=== PATIENT | male | born 1935 | race Caucasian/White ===

== ENCOUNTER 2018-10-22 10:37 | Inpatient (IN) ==
[2018-10-22] MEDS ORDERED: Azithromycin 500 MG in D5% in Water 250 ML IVPB ONE (11:08)
[2018-10-22] MEDS ORDERED: methylPREDNISolone 125 MG/2 ML VIAL IVP ONE (11:08)
[2018-10-22] MEDS ORDERED: Ipratropium/Albuterol Neb 3 ML IH ONE (11:08)
[2018-10-22] MEDS ORDERED: cefTRIAXone 1,000 MG in Water for inj. (sterile) 20 ML 10 ML IVP ONE (11:08)
[2018-10-22] MEDS ORDERED: Albuterol 2.5 MG/3 ML NEBULIZER IH ONE (11:08)
--- NOTE | 2018-10-22 11:14 | Emergency Department Note ---
Disposition Clinical Impression: Acute exacerbation of chronic obstructive airways disease Disposition: Admitted As Inpatient Condition: Fair Time of Disposition: 12:00 ( will admit) SOB HPI - General Chief Complaint: ED Shortness of Breath/Dyspnea Stated Complaint: SOB Time Seen by Provider: 10/22/18 11:10 Source: patient Mode of arrival: EMS Limitations: no limitations Nursing Notes Reviewed: Yes Vital Signs Reviewed: Yes - History of Present Illness 83-year-old male, who presented to the emergency department via EMS with complaints of shortness of breath, coughing congestion. Patient with history of COPD, who all maneuvers oxygen at bedtime, oxygen saturation on arrival was 88% on room air. Patient is being followed by mercury cracking tester at [facility], who has ordered some labs EKG on the patient outpatient. Patient being evaluated for congestive heart failure, and chronic A. fib. He is here with his neighbor, who states that he has been short of breath for at least a couple of months but worse over the past week. Patient also has complaints of constipation. Patient with AICD, denies his defibrillator going off. Pt Subjective Complaint: shortness of breath Onset (ago): week(s) (1 week) Context: occurred during exertion Severity: moderate Consistency/Duration: intermittent Improves with: oxygen Worsens with: lying flat Known history of: congestive heart failure Associated symptoms: Reports: sputum production, orthopnea Treatment prior to arrival: oxygen Cough present: Yes Cough Description: Voluntary Cough Frequency: Intermittent Sputum production: Yes Sputum Amount: Small Sputum Color: White - Related Data Home oxygen amount: none Home Medications Medication Instructions Recorded Confirmed Albuterol Sulfate [Proventil Hfa] 6.7 gm IH QID 02/10/18 10/22/18 Aspirin [Lo-Dose Aspirin EC] 81 mg PO DAILY 02/10/18 10/22/18 Atorvastatin [Lipitor] 10 mg PO HS 02/10/18 10/22/18 Cyclosporine [Restasis] 1 each OP BID 02/10/18 10/22/18 Doxycycline 100 mg PO QMWF 02/10/18 10/22/18 Ergocalciferol (VITAMIN D2) 400 unit PO DAILY 02/10/18 10/22/18 [Vitamin D] Ferrous Sulfate, Dried [Iron] 65 mg PO DAILY 02/10/18 10/22/18 Fluticasone/Salmeterol [Advair 1 each IH BID 02/10/18 10/22/18 250-50 Diskus] Furosemide [Lasix] 40 mg PO DAILY 02/10/18 10/22/18 Ipratropium Neb [Atrovent Neb] 0.5 mg IH Q6HR PRN 02/10/18 10/22/18 Magnesium 250 mg PO DAILY 02/10/18 10/22/18 Primidone [Mysoline] 50 mg PO BID 02/10/18 10/22/18 Roflumilast [Daliresp] 500 mcg PO DAILY 02/10/18 10/22/18 Spironolactone [Aldactone] 25 mg PO DAILY 02/10/18 10/22/18 Tiotropium [Spiriva] 18 mcg IH 0700 02/10/18 10/22/18 Warfarin [Coumadin] 4 mg PO 1800 02/10/18 10/22/18 predniSONE [Prednisone] 2.5 mg PO QMWF 02/10/18 10/22/18 Carvedilol [Coreg] 6.25 mg PO BIDWM 10/22/18 10/22/18 Cyclosporine [Restasis] 1 each OP BID 10/22/18 10/22/18 Allergies Allergy/AdvReac Type Severity Reaction Status Date / Time phenytoin [From Dilantin] Allergy See Verified 02/10/18 10:41 Comments Constitutional: Denies: fever, chills, weakness, weight change Eyes: Denies: eye pain, eye discharge, vision change ENT ED: Denies: ear pain, throat pain, dental pain, hearing loss, epistaxis, congestion, dysphagia Cardiovascular: Denies: chest pain, palpitations, dyspnea on exertion, edema, syncope Respiratory: Reports: cough, dyspnea, wheezes. Denies: hemoptysis, stridor Gastrointestinal: Denies: abdominal pain, nausea, vomiting, diarrhea, constipation, hematemesis, melena, hematochezia Genitourinary: Denies: urgency, dysuria, frequency, hematuria Musculoskeletal: Denies: back pain, neck pain, arthralgia, myalgia Integumentary: Denies: rash, abrasion, lesions Neurological: Denies: headache, weakness, numbness, paresthesias, confusion, abnormal gait, vertigo Psychiatric: Denies: anxiety, depression, suicidal thoughts, homicidal thoughts, auditory hallucinations, visual hallucinations Endocrine: Denies: fatigue Hematological/Lymphatic: Denies: easy bleeding, easy bruising Allergic/Immunologic: Denies: facial swelling, urticaria Past Medical History - Past Medical History Medical history: Reports: COPD, myocardial infarction, pulmonary embolus Psychiatric history: Reports: no psych history - Social History Smoking Status: Former smoker Alcohol use: Reports: occasionally Drug use: Reports: none Physical Exam - General Limitations: no limitations General appearance: alert, in no apparent distress - Head Head exam: atraumatic, normocephalic, normal inspection - Eye Eye exam: Present: normal appearance, PERRL, EOMI - Expanded Eye Exam Pupils: Left: reactive - ENT ENT exam: normal exam, normal oropharynx, mucous membranes moist - Expanded ENT Exam External ear exam: Present: normal external inspection Mouth exam: Present: normal external inspection Teeth exam: Present: normal inspection Throat exam: Present: normal inspection - Neck Neck exam: Present: normal inspection, full ROM, trachea midline - Chest Chest inspection: Present: normal inspection, symmetric chest wall rise - Respiratory Respiratory exam: Present: wheezes - Cardiovascular Cardiovascular exam: Present: irregular rhythm - Abdominal Exam Abdominal exam: Present: soft, Non-Tender. Absent: tenderness, distention, guarding, rebound, rigidity - Extremities Exam Extremities exam: Present: normal inspection, full ROM. Absent: tenderness, pedal edema - Expanded Upper Extremity Exam Shoulder exam: Present: normal inspection, full ROM Arm exam: Present: normal inspection, full ROM Elbow exam: Present: normal inspection, full ROM Forearm/Wrist exam: Present: normal inspection, full ROM Hand exam: Present: normal inspection, full ROM Vascular exam: Normal: capillary refill, radial pulse - Expanded Lower Extremity Exam Hip/Pelvis exam: Present: normal inspection, full ROM Upper leg exam: Present: normal inspection, full ROM Knee exam: Present: normal inspection, full ROM Lower leg exam: Present: normal inspection, full ROM Ankle exam: Present: normal inspection, full ROM Foot/toe exam: Present: normal inspection, full ROM Neurovascular/Tendon exam: Absent: motor deficit, sensory deficit, tendon deficit - Back Exam Back exam: Present: normal inspection, full ROM. Absent: tenderness - Neurological Exam Neurological exam: Present: alert, oriented X3 - Expanded Neurological Exam Patient oriented to: Present: person, place, time Coma Scale Eye Opening: Spontaneous Coma Scale Motor Response: Obeys Commands Coma Scale Verbal Response: Oriented Coma Scale Total: 15 - Psychiatric Psychiatric exam: Present: normal affect, normal mood - Skin Skin exam: Present: warm, dry, intact, normal color Course Vital Signs Temperature 97.7 F 10/22/18 10:39 Pulse Rate 64 10/22/18 10:39 Respiratory Rate 20 10/22/18 10:39 Blood Pressure 123/68 10/22/18 10:39 O2 Sat by Pulse Oximetry 91 10/22/18 10:39 Temperature 97.7 F 10/22/18 10:39 Pulse Rate 63 10/22/18 12:09 Respiratory Rate 18 10/22/18 12:09 Blood Pressure 121/62 10/22/18 12:09 O2 Sat by Pulse Oximetry 96 10/22/18 12:09 Oxygen Delivery Oxygen Delivery Nasal Cannula Shortness of Breath/Dyspnea - Differential Diagnosis Likely: acute exacerbation of chronic obstructive airways disease, congestive heart failure, pneumonia, asthma with exacerbation - Medical Records Medical records reviewed: Yes I reviewed the patient's medical records. - Lab Data Lab results reviewed: Yes I reviewed the patient's lab results. Result diagrams: 10/22/18 11:28 10/22/18 11:28 Lab Results 10/22/18 10/22/18 10/22/18 Range/Units 11:28 11:28 11:28 WBC 9.3 (4.3-11.1) K/mcL RBC 3.76 L (4.19-5.50) M/mcL Hgb 12.1 L (12.9-16.9) g/dL Hct 36.6 L (37.5-50.1) % MCV 97.3 (83.0-100.0) fL MCH 32.2 (28.0-33.3) pg MCHC 33.1 (31.6-35.5) g/dL RDW 14.5 (11.5-14.5) % Plt Count 284 (140-400) K/mcL MPV 9.7 (9.4-12.4) fL Immature Gran % 0.3 (0-4) % Seg Neutrophils % 81.1 % Lymphocytes % 9.6 % Monocytes % 7.3 % Eosinophils % 1.2 % Basophils % 0.5 % Neutrophils # 7.5 (1.6-8.9) K/mcL Lymphocytes # 0.9 (0.6-4.6) K/mcL Monocytes # 0.7 (0.0-1.3) K/mcL Eosinophils # 0.1 (0.0-0.6) K/mcL Basophils # 0.1 (0.0-0.2) K/mcL PT 36.9 H (9.4-12.1) Seconds INR 3.3 APTT 38.1 H (26.0-36.0) Seconds Sodium 138 (136-145) mEq/L Potassium 4.9 (3.5-5.1) mEq/L Chloride 104 (98-107) mEq/L Carbon Dioxide 26 (23-29) mEq/L BUN 31 H (8-23) mg/dL Creatinine 1.12 (0.70-1.30) mg/dL Est GFR ( Amer) > 60 (> 60) Est GFR (Non-Af Amer) > 60 (> 60) BUN/Creatinine Ratio 28 H (6-26) Glucose 117 H (70-105) mg/dL Calculated Osmolality 294 (280-300) Lactic Acid (0.5-2.2) mmol/L Calcium 9.7 (8.6-10.3) mg/dL Troponin I < 0.03 (< 0.04) ng/mL B-Natriuretic Peptide (Less than 100) pg/mL 10/22/18 10/22/18 Range/Units 11:28 11:28 WBC (4.3-11.1) K/mcL RBC (4.19-5.50) M/mcL Hgb (12.9-16.9) g/dL Hct (37.5-50.1) % MCV (83.0-100.0) fL MCH (28.0-33.3) pg MCHC (31.6-35.5) g/dL RDW (11.5-14.5) % Plt Count (140-400) K/mcL MPV (9.4-12.4) fL Immature Gran % (0-4) % Seg Neutrophils % % Lymphocytes % % Monocytes % % Eosinophils % % Basophils % % Neutrophils # (1.6-8.9) K/mcL Lymphocytes # (0.6-4.6) K/mcL Monocytes # (0.0-1.3) K/mcL Eosinophils # (0.0-0.6) K/mcL Basophils # (0.0-0.2) K/mcL PT (9.4-12.1) Seconds INR APTT (26.0-36.0) Seconds Sodium (136-145) mEq/L Potassium (3.5-5.1) mEq/L Chloride (98-107) mEq/L Carbon Dioxide (23-29) mEq/L BUN (8-23) mg/dL Creatinine (0.70-1.30) mg/dL Est GFR ( Amer) (> 60) Est GFR (Non-Af Amer) (> 60) BUN/Creatinine Ratio (6-26) Glucose (70-105) mg/dL Calculated Osmolality (280-300) Lactic Acid 1.1 (0.5-2.2) mmol/L Calcium (8.6-10.3) mg/dL Troponin I (< 0.04) ng/mL B-Natriuretic Peptide 137 H (Less than 100) pg/mL - Radiology Data Radiology results reviewed: Yes I reviewed the patient's radiology results. - EKG Data EKG attestation: Yes I reviewed and interpreted this EKG. EKG results narrative: EKG shows a electronically paced rhythm, rate of 53. Rate: Reports: normal Rhythm: Reports: NSR
[2018-10-22 11:36] LABS: Basophils # 0.1 K/mcL (0.0-0.2); Basophils % 0.5 %; Eosinophils # 0.1 K/mcL (0.0-0.6); Eosinophils % 1.2 %; Hematocrit 36.6 % (37.5-50.1); Hemoglobin 12.1 g/dL (12.9-16.9); Immature Granulocytes % 0.3 % (0-4); Lymphocytes # 0.9 K/mcL (0.6-4.6); Lymphocytes % 9.6 %; Mean Corpuscular HGB Conc 33.1 g/dL (31.6-35.5); Mean Corpuscular Hemoglobin 32.2 pg (28.0-33.3); Mean Corpuscular Volume 97.3 fL (83.0-100.0); Mean Platelet Volume 9.7 fL (9.4-12.4); Monocytes # 0.7 K/mcL (0.0-1.3); Monocytes % 7.3 %; Neutrophils # 7.5 K/mcL (1.6-8.9); Platelet Count 284 K/mcL (140-400); Red Blood Count 3.76 M/mcL (4.19-5.50); Red Cell Distribution Width 14.5 % (11.5-14.5); Segmented Neutrophils % 81.1 %
[2018-10-22 11:45] LABS: INR 3.3; Prothrombin Time 36.9 Seconds (9.4-12.1)
[2018-10-22 11:47] LABS: Activated Partial Thrombo Time 38.1 Seconds (26.0-36.0)
[2018-10-22 11:55] LABS: BUN/Creatinine Ratio 28 (6-26); Blood Urea Nitrogen 31 mg/dL (8-23); Calcium 9.7 mg/dL (8.6-10.3); Carbon Dioxide 26 mEq/L (23-29); Chloride 104 mEq/L (98-107); Glucose 117 mg/dL (70-105); Osmolality,Calculated 294 (280-300); Potassium 4.9 mEq/L (3.5-5.1); Sodium 138 mEq/L (136-145); eGFR For Non-African Americans > 60 (> 60)
[2018-10-22 11:56] LABS: Troponin I < 0.03 ng/mL (< 0.04)
[2018-10-22] MEDS ORDERED: Ipratropium/Albuterol Neb 3 ML IH SCH ×2 (13:00→17:00)
[2018-10-22] MEDS ORDERED: Ipratropium Neb 0.5 MG NEBULIZER IH PRN (13:27)
[2018-10-22] MEDS: MethylPREDNISolone 40 MG/ML VIAL IVP SCH ×2 (15:13→20:21)
[2018-10-22] MEDS: Artificial Tears SOLN 15 ML BOTTLE BOTH EYES PRN (15:13)
[2018-10-22] MEDS ORDERED: *HR* Warfarin 2 MG TABLET PO SCH (18:00)
[2018-10-22] MEDS: Primidone 50 MG TABLET PO SCH (20:21)
[2018-10-22] MEDS: RESTASIS OPH OP SCH (20:21)
[2018-10-22] MEDS: *HR* Warfarin 3 MG TABLET PO SCH (21:32)
[2018-10-22] MEDS: Budesonide/Formoterol 80/4.5 MDI IH SCH (22:28)
[2018-10-23] MEDS: Spironolactone 25 MG TABLET PO SCH (08:02)
[2018-10-23] MEDS: Primidone 50 MG TABLET PO SCH ×2 (08:02→20:58)
[2018-10-23] MEDS: Magnesium Oxide 400 MG TABLET PO SCH (08:03)
[2018-10-23] MEDS: Furosemide 40 MG TABLET PO SCH (08:03)
[2018-10-23] MEDS: Aspirin Enteric Coated 81 MG Tablet PO SCH (08:03)
[2018-10-23] MEDS: Cholecalciferol (D-3) 1,000 UNIT TABLET PO SCH (08:03)
[2018-10-23] MEDS: RESTASIS OPH OP SCH ×2 (08:04→20:58)
[2018-10-23] MEDS: DALIRESP 500MCG PO SCH (08:04)
[2018-10-23] MEDS: MethylPREDNISolone 40 MG/ML VIAL IVP SCH ×3 (08:04→20:58)
[2018-10-23] MEDS: Tiotropium 18 MCG inhalation IH SCH (09:46)
[2018-10-23] MEDS: Budesonide/Formoterol 80/4.5 MDI IH SCH ×2 (09:47→22:14)
[2018-10-23] MEDS: Artificial Tears SOLN 15 ML BOTTLE BOTH EYES PRN (10:02)
--- NOTE | 2018-10-23 12:33 | Electrocardiograph Report ---
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
--- NOTE | 2018-10-23 14:43 | Internal Med History&Physical ---
Date of Encounter: 10/23/18 Time of Encounter: 08:45 Assessment and Plan (1) Acute exacerbation of chronic obstructive airways disease Current visit: Yes Status: Acute WBC differential shows left shift although no WBC elevation. He will be started on IV Rocephin and Zithromax with lactobacillus. CT of chest will be done to further evaluate. (2) Weight loss Current visit: Yes Status: Acute He will have chest, abdomen, and pelvis CT scan. TSH will be ordered. (3) Anemia Current visit: Yes Status: Acute Anemia testing will be ordered. Qualifiers: Anemia type: unspecified type Qualified Code(s): D64.9 - Anemia, unspecified (4) Atrial fibrillation Current visit: Yes Status: Chronic Continue Coumadin Qualifiers: Atrial fibrillation type: chronic Qualified Code(s): I48.2 - Chronic atrial fibrillation Internal Medicine - H&P: HPI Chief complaint: Dyspnea Admitted From: Emergency Dept Plans for Post Hospital Care: Home History of present illness: Mr. Parrish is a 83 year old male who came to emergency room stating he had worsening dyspnea with diarrhea for the past 2 days. He reports a cough produ ctive of clear sputum. There is been no hemoptysis. He denies significant pain. He was evaluated in emergency room and was felt to have exacerbation of COPD. He was admitted to [facility] floor for ongoing care needs. Respiratory history is significant for having smoked from approximately age 10-5 0 up to 2 packs per day. He wears oxygen at home due to COPD with hypoxemia. He follows with a test facility engineer at [facility]. Past Med Surg Social Fam HX - Past Medical History Medical history: COPD, myocardial infarction, pulmonary embolus Additional medical history: bloodclots Psychiatric history: no psych history - Past Surgical History Additional surgical history: stent carotid artery. chiqui filter rt leg. cardiac stents - Social History Smoking Status: Former smoker Alcohol use: occasionally Drug use: none Internal Medicine - H&P: Meds Albuterol Sulfate [Proventil Hfa] 6.7 gm IH QID 02/10/18 [History] Aspirin [Lo-Dose Aspirin EC] 81 mg PO DAILY 02/10/18 [History] Atorvastatin [Lipitor] 10 mg PO HS 02/10/18 [History] Cyclosporine [Restasis] 1 each OP BID 02/10/18 [History] Doxycycline 100 mg PO QMWF 02/10/18 [History] Ergocalciferol (VITAMIN D2) [Vitamin D] 400 unit PO DAILY 02/10/18 [History] Ferrous Sulfate, Dried [Iron] 65 mg PO DAILY 02/10/18 [History] Fluticasone/Salmeterol [Advair 250-50 Diskus] 1 each IH BID 02/10/18 [History] Furosemide [Lasix] 40 mg PO DAILY 02/10/18 [History] Ipratropium Neb [Atrovent Neb] 0.5 mg IH Q6HR PRN 02/10/18 [History] Magnesium 250 mg PO DAILY 02/10/18 [History] Primidone [Mysoline] 50 mg PO BID 02/10/18 [History] Roflumilast [Daliresp] 500 mcg PO DAILY 02/10/18 [History] Spironolactone [Aldactone] 25 mg PO DAILY 02/10/18 [History] Tiotropium [Spiriva] 18 mcg IH 0700 02/10/18 [History] Warfarin [Coumadin] 4 mg PO 1800 02/10/18 [History] predniSONE [Prednisone] 2.5 mg PO QMWF 02/10/18 [History] Carvedilol [Coreg] 6.25 mg PO BIDWM 10/22/18 [History] Cyclosporine [Restasis] 1 each OP BID 10/22/18 [History] Allergy/AdvReac Type Severity Reaction Status Date / Time phenytoin [From Dilantin] Allergy See Verified 02/10/18 10:41 Comments All Systems PM: A 10-system review of systems was performed and is negative for pertinent findings except as documented above in the HPI. Review of systems: Gen.: He states his weight has decreased approximately 40 pounds in the past 2 years unintentionally. Cardiovascular: He denies hypertension. He has known ASHD and reports MO several years ago with 2 stents placed. He has chronic atrial fibrillation. He thinks he has had a pulmonary embolism but does not remember details. Echocardiogram 09/13/2017 showed LVEF of 35-40%. The E/A ratio was 0.66. The interventricular septum, posterior wall thickness measurements, and atria size were not recorded. He states he has had worsening dyspnea on exertion for several months to years. He had AICD placed in the past but does not know specific indication for this. Respiratory: As per history of present illness GI: He denies disorders of his liver gallbladder or exocrine pancreas : He denies hematuria dysuria or kidney stones Neurologic: He denies large distribution strokes or seizures. Endocrine: He denies diabetes thyroid disease or hyperlipidemia Hematology/oncology: He was unaware he had anemia on labs in emergency room. He denies known internal malignancies or other blood disorders. Psychiatric: He has feelings of depression. He denies other mental health diagnosis. [place] skeletal: He denies significant arthritis gout or other bone joint or muscle disorders. - Constitutional Vitals: Temp Pulse Resp BP Pulse Ox 97.7 F 68 20 132/75 95 10/23/18 12:06 10/23/18 12:06 10/23/18 12:06 10/23/18 12:06 10/23/18 12:06 Exam: Gen.: He is a well-developed well-nourished male who appears slightly dyspneic while talking HEENT: Head is atraumatic and normocephalic. Eyes: EOMI. There is no scleral icterus. Mouth: Mucosa is moist. Neck: Supple and nontender. There is no thyromegaly or adenopathy noted. Heart: Regular without murmurs gallops or ectopics Lungs: No wheezes or crackles are heard. Abdomen: Soft and nontender. No masses or guarding are noted. Extremities: There is no cyanosis edema or clubbing noted. Dorsalis pedis and posttibial pulses are 0-trace palpable bilaterally. Neurologic: Mental status: He is talkative and a fair to good historian. He does not remember some details of his history. Cranial nerves: Smile is symmetric. Forehead wrinkles bilaterally. Tongue protrudes midline. EOMI. Motor: There is no pronator drift. Cerebellar: Finger to nose is intact bilaterally. Skin: Warm and dry Internal Med - H&P Results - Labs CBC & Chem 7: 10/22/18 11:28 10/22/18 11:28 - Impressions ITS Impressions Chest X-Ray 10/22/18 11:08 IMPRESSION: No evidence for acute cardiopulmonary process. D/ / Yobani Echeverria MD / Yobani Echeverria MD Interpreting Provider: Yobani Echeverria MD
[2018-10-23] MEDS: Preparation H Ointment 30 GM TUBE TP SCH ×2 (15:01→22:17)
[2018-10-23] MEDS: *HR* Warfarin 3 MG TABLET PO SCH (16:52)
[2018-10-23] MEDS: cefTRIAXone 1,000 MG in Water for inj. (sterile) 20 ML 10 ML IVP SCH (17:34)
[2018-10-23] MEDS: Azithromycin 500 MG in D5% in Water 250 ML IVPB SCH (17:41)
[2018-10-23] MEDS: Lactobacillus 1 EACH CAP.SPRINK PO SCH (20:58)
[2018-10-24 06:11] LABS: Basophils % 0.1 %; Eosinophils % 0.2 %; Hematocrit 35.6 % (37.5-50.1); Hemoglobin 11.6 g/dL (12.9-16.9); Immature Granulocytes % 0.4 % (0-4); Lymphocytes # 0.8 K/mcL (0.6-4.6); Lymphocytes % 6.9 %; Mean Corpuscular HGB Conc 32.6 g/dL (31.6-35.5); Mean Corpuscular Hemoglobin 32.2 pg (28.0-33.3); Mean Corpuscular Volume 98.9 fL (83.0-100.0); Mean Platelet Volume 10.2 fL (9.4-12.4); Monocytes # 0.6 K/mcL (0.0-1.3); Monocytes % 4.9 %; Platelet Count 282 K/mcL (140-400); Red Cell Distribution Width 14.6 % (11.5-14.5); Segmented Neutrophils % 87.5 %
[2018-10-24 06:41] LABS: Magnesium 1.8 mg/dL (1.6-2.6)
[2018-10-24 06:42] LABS: Alanine Aminotransferase 14 Units/L (7-52); Albumin 3.2 g/dL (3.5-5.7); Albumin/Globulin Ratio 0.9 (1.1-2.2); Alkaline Phosphatase 66 Units/L (34-104); Aspartate Amino Transferase 16 Units/L (13-39); BUN/Creatinine Ratio 34 (6-26); Bilirubin,Total 0.2 mg/dL (0.3-1.0); Blood Urea Nitrogen 36 mg/dL (8-23); Calcium 9.3 mg/dL (8.6-10.3); Carbon Dioxide 25 mEq/L (23-29); Chloride 104 mEq/L (98-107); Globulin 3.6 g/dL (2.4-3.5); Glucose 128 mg/dL (70-105); Osmolality,Calculated 294 (280-300); Potassium 4.7 mEq/L (3.5-5.1); Sodium 137 mEq/L (136-145); Total Protein 6.8 g/dL (6.4-8.9); eGFR For Non-African Americans > 60 (> 60)
[2018-10-24 06:50] LABS: Thyroid Stimulating Hormone 0.718 mcIU/mL (0.340-5.600)
[2018-10-24 08:12] LABS: Neutrophils # 10.2 K/mcL (1.6-8.9)
[2018-10-24 08:13] LABS: Large Platelets Present (Not Present); Platelet Estimate Normal (Normal)
[2018-10-24] MEDS: Magnesium Oxide 400 MG TABLET PO SCH (08:30)
[2018-10-24] MEDS: MethylPREDNISolone 40 MG/ML VIAL IVP SCH ×3 (08:30→21:15)
[2018-10-24] MEDS: Primidone 50 MG TABLET PO SCH ×2 (08:31→21:15)
[2018-10-24] MEDS: Spironolactone 25 MG TABLET PO SCH (08:31)
[2018-10-24] MEDS: Aspirin Enteric Coated 81 MG Tablet PO SCH (08:31)
[2018-10-24] MEDS: Lactobacillus 1 EACH CAP.SPRINK PO SCH ×2 (08:31→21:15)
[2018-10-24] MEDS: Cholecalciferol (D-3) 1,000 UNIT TABLET PO SCH (08:31)
[2018-10-24] MEDS: DALIRESP 500MCG PO SCH (08:32)
[2018-10-24] MEDS: RESTASIS OPH OP SCH ×2 (08:32→21:15)
[2018-10-24] MEDS: Furosemide 40 MG TABLET PO SCH (08:34)
[2018-10-24] MEDS: Preparation H Ointment 30 GM TUBE TP SCH ×2 (09:15→21:16)
[2018-10-24] MEDS: Artificial Tears SOLN 15 ML BOTTLE BOTH EYES PRN (09:40)
--- NOTE | 2018-10-24 10:33 | Internal Med Progress Note ---
Date of Encounter: 10/24/18 Time of Encounter: 10:25 - Assessment and plan (1) Acute exacerbation of chronic obstructive airways disease Current Visit: Yes Status: Acute Assessment and plan: October 24. Chest CT showed probable right lower lobe pneumonia. WBC has risen today and differential shows increased left shift. Continue IV Rocephin and Zithromax with lactobacillus. (2) Weight loss Current Visit: Yes Status: Acute Assessment and plan: October 24. CT scan showed no worrisome pathology suspicious for malignancy. TSH was normal at 0.718. Continue to monitor. (3) Anemia Current Visit: Yes Status: Acute Assessment and plan: October 24. Hemoglobin has decreased to 11.6. Anemia testing results partially pending. Qualifiers: Anemia type: unspecified type Qualified Code(s): D64.9 - Anemia, unspecified (4) Atrial fibrillation Current Visit: Yes Status: Chronic Assessment and plan: October 24. Continue Coumadin. Check PT/INR in a.m. Qualifiers: Atrial fibrillation type: chronic Qualified Code(s): I48.2 - Chronic atrial fibrillation (5) CHF (congestive heart failure) Current Visit: Yes Status: Chronic Assessment and plan: October 24. BN peptide has risen to 234. BUN has risen to 36. Start Imdur an d continue Coreg, Lasix, and Aldactone. Qualifiers: Heart failure type: combined systolic and diastolic Heart failure chronicity: chronic Qualified Code(s): I50.42 - Chronic combined systolic (congestive) and diastolic (congestive) heart failure - Subjective Interval history: October 24. He has no new complaints. He states he is coughing up thick mucus and feels dyspneic. - Constitutional Vitals: Temp Pulse Resp BP Pulse Ox 97.4 F L 64 18 115/65 91 10/24/18 06:10 10/24/18 08:28 10/24/18 06:10 10/24/18 08:28 10/24/18 08:28 Exam: He is resting in bed and appears in mild respiratory distress. He coughed occasionally during the visit. His affect is overall cheerful. I reviewed his medications and lab results. Internal Medicine: Result - Labs CBC & Chem 7: 10/24/18 06:03 10/24/18 06:03 Labs: Short CBC 10/24/18 Range/Units 06:03 WBC 11.7 H (4.3-11.1) K/mcL Hgb 11.6 L (12.9-16.9) g/dL Hct 35.6 L (37.5-50.1) % Plt Count 282 (140-400) K/mcL Neutrophils # 10.2 H (1.6-8.9) K/mcL BMP 10/24/18 06:03 Sodium 137 Potassium 4.7 Chloride 104 Carbon Dioxide 25 BUN 36 H Creatinine 1.07 Glucose 128 H Calcium 9.3 Liver Function 10/24/18 Range/Units 06:03 Total Bilirubin 0.2 L (0.3-1.0) mg/dL AST 16 (13-39) Units/L ALT 14 (7-52) Units/L Alkaline Phosphatase 66 (34-104) Units/L Albumin 3.2 L (3.5-5.7) g/dL - ABG Interpretation ABG results: PT/INR, D-dimer PT 36.9 Seconds (9.4-12.1) H 10/22/18 11:28 - Impressions Impressions Chest CT 10/23/18 14:33 IMPRESSION: 1. Right base opacity concerning for infection in the appropriate clinical setting. 2. No acute intra-abdominal abnormality. 3. Moderate to severe emphysema. 4. Severe atherosclerosis. 5. Severe diverticulosis. 6. Cholelithiasis. 7. Nonobstructing bilateral nephrolithiasis. D/ / 10/23/2018 15:55:00 Celeste Sierra MD / marla Interpreting Provider: Celeste Sierra MD Abdomen/Pelvis CT 10/23/18 14:45 IMPRESSION: 1. Right base opacity concerning for infection in the appropriate clinical setting. 2. No acute intra-abdominal abnormality. 3. Moderate to severe emphysema. 4. Severe atherosclerosis. 5. Severe diverticulosis. 6. Cholelithiasis. 7. Nonobstructing bilateral nephrolithiasis. D/ / 10/23/2018 15:55:00 Celeste Sierra MD / marla Interpreting Provider: Celeste Sierra MD Consult Discharge Plan - Plan Referrals: Vitaly Epstein [Primary Care Provider] - 1 week
[2018-10-24 10:38] LABS: Folate 20.4 ng/mL (3.0-16.0)
[2018-10-24] MEDS: Budesonide/Formoterol 80/4.5 MDI IH SCH ×2 (10:52→22:13)
[2018-10-24] MEDS: Tiotropium 18 MCG inhalation IH SCH (10:52)
[2018-10-24] MEDS: Isosorbide MONOnitrate (24 HR) 30 MG TAB.ER.24H PO SCH (11:02)
[2018-10-24] MEDS ORDERED: Albuterol 2.5 MG/3 ML NEBULIZER IH PRN (15:04)
[2018-10-24] MEDS: *HR* Warfarin 3 MG TABLET PO SCH (17:47)
[2018-10-24] MEDS: cefTRIAXone 1,000 MG in Water for inj. (sterile) 20 ML 10 ML IVP SCH (17:49)
[2018-10-24] MEDS: Azithromycin 500 MG in D5% in Water 250 ML IVPB SCH (17:54)
[2018-10-25 06:02] LABS: Basophils % 0.1 %; Hematocrit 35.5 % (37.5-50.1); Hemoglobin 11.7 g/dL (12.9-16.9); Immature Granulocytes % 0.3 % (0-4); Lymphocytes % 7.4 %; Monocytes # 0.5 K/mcL (0.0-1.3); Monocytes % 4.2 %; Platelet Count 318 K/mcL (140-400); Red Blood Count 3.66 M/mcL (4.19-5.50); Red Cell Distribution Width 14.4 % (11.5-14.5)
[2018-10-25 06:05] LABS: Lymphocytes # 0.8 K/mcL (0.6-4.6)
[2018-10-25 06:10] LABS: INR 3.1; Prothrombin Time 35.2 Seconds (9.4-12.1)
[2018-10-25 06:22] LABS: BUN/Creatinine Ratio 32 (6-26); Blood Urea Nitrogen 38 mg/dL (8-23); Calcium 9.3 mg/dL (8.6-10.3); Carbon Dioxide 28 mEq/L (23-29); Chloride 103 mEq/L (98-107); Glucose 136 mg/dL (70-105); Osmolality,Calculated 297 (280-300); Potassium 4.7 mEq/L (3.5-5.1); Sodium 138 mEq/L (136-145); eGFR For Non-African Americans 58 (> 60)
[2018-10-25] MEDS: Artificial Tears SOLN 15 ML BOTTLE BOTH EYES PRN (06:30)
[2018-10-25] MEDS ORDERED: predniSONE 5 MG TABLET PO SCH (09:00)
[2018-10-25] MEDS: Isosorbide MONOnitrate (24 HR) 30 MG TAB.ER.24H PO SCH (09:10)
[2018-10-25] MEDS: MethylPREDNISolone 40 MG/ML VIAL IVP SCH (09:10)
[2018-10-25] MEDS: Spironolactone 25 MG TABLET PO SCH (09:10)
[2018-10-25] MEDS: Aspirin Enteric Coated 81 MG Tablet PO SCH (09:10)
[2018-10-25] MEDS: Lactobacillus 1 EACH CAP.SPRINK PO SCH (09:10)
[2018-10-25] MEDS: Cholecalciferol (D-3) 1,000 UNIT TABLET PO SCH (09:10)
[2018-10-25] MEDS: Furosemide 40 MG TABLET PO SCH (09:10)
[2018-10-25] MEDS: Magnesium Oxide 400 MG TABLET PO SCH (09:10)
[2018-10-25] MEDS: Primidone 50 MG TABLET PO SCH (09:10)
[2018-10-25] MEDS: RESTASIS OPH OP SCH (09:11)
[2018-10-25] MEDS: DALIRESP 500MCG PO SCH (09:11)
[2018-10-25] MEDS: Budesonide/Formoterol 80/4.5 MDI IH SCH (10:16)
[2018-10-25] MEDS: Tiotropium 18 MCG inhalation IH SCH (10:17)
[2018-10-25 10:18] VITALS: BP 120/72
--- NOTE | 2018-10-25 10:35 | Discharge Summary ---
Orders not resulted at time of discharge: Pending orders 10/22/18 11:35 Culture,Blood [BC] Stat Date of Encounter: 10/25/18 Time of Encounter: 10:15 - Discharge Diagnosis (1) Acute exacerbation of chronic obstructive airways disease Priority: Primary Status: Acute (2) Weight loss Priority: Secondary Status: Acute (3) Anemia Priority: Secondary Status: Acute Qualifiers: Anemia type: unspecified type Qualified Code(s): D64.9 - Anemia, unspecified (4) Atrial fibrillation Priority: Secondary Status: Chronic Qualifiers: Atrial fibrillation type: chronic Qualified Code(s): I48.2 - Chronic atrial fibrillation (5) CHF (congestive heart failure) Priority: Secondary Status: Chronic Qualifiers: Heart failure type: combined systolic and diastolic Heart failure chronicity: chronic Qualified Code(s): I50.42 - Chronic combined systolic (congestive) and diastolic (congestive) heart failure Hospital course: Mr. Parrish is a 83 year old male who came to emergency room stating he had worsening dyspnea with diarrhea for the past 2 days. He reports a cough productive of clear sputum. There is been no hemoptysis. He denies significant pain. He was evaluated in emergency room and was felt to have exacerbation of COPD. He was admitted to [facility] floor for ongoing care needs. Initial orders were written by the emergency room physician. I saw him on October 23 and performed a history and physical. He was started on IV Rocephin and Zithromax with lactobacillus empirically. Chest CT was done to further e valuate. Chest CT showed right base opacity concerning for infection. No other worrisome pathology was seen. He had clinical improvement and remained afebrile. WBC was stable at 11.4 on day of discharge with persistent left shift. He will continue with antibiotic and probiotic for 3 additional days at discharge. His PCP can monitor and ensure clearing of the infiltrate. BN peptide increased to 234 on October 24. Echocardiogram was done to further evaluate cardiac status. The echocardiogram showed LVEF of 40-45%. 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 The interventricular septum and posterior wall thickness measurements were elevated at 1.40 and 1.30 cm respectively. There was LAE at 4.20 cm. The E/A ratio was 0.7 consistent with mild diastolic dysfunction. There was mild mitral regurgitation. No other significant valvular abnormalities were seen. He was started on isosorbide for heart failure. Coreg, Lasix, and Aldactone will be continued. Anemia testing showed iron 25, transferrin saturation 9%, transferrin 198, ferritin 49, B12 829, and folate 20.4. He will continue ferrous sulfate with addition of ascorbic acid to improve absorption. His PCP can monitor labs. On October 25 he felt improved and stable for discharge home. He will follow with his PCP Dr. Vitaly Epstein within 1 week. - Time Spent with Patient Total time spent providing and/or coordinating discharge services: - Discharge Medications Prescriptions: Cefuroxime PO [Ceftin] 500 mg PO Q12HR #6 tablet Ascorbic Acid [C-500] 500 mg PO DAILY #30 tablet Azithromycin [Zithromax] 250 mg PO DAILY #3 tablet Ferrous Sulfate 325 mg PO DAILY #30 tablet Isosorbide MONOnitrate (24 HR) [Imdur] 30 mg PO DAILY #30 tab.er.24h Lactobacillus [Culturelle] 1 each PO BID #6 cap.sprink Home Medications: Albuterol Sulfate [Proventil Hfa] 6.7 gm IH QID 02/10/18 [History] Aspirin [Lo-Dose Aspirin EC] 81 mg PO DAILY 02/10/18 [History] Atorvastatin [Lipitor] 10 mg PO HS 02/10/18 [History] Cyclosporine [Restasis] 1 each OP BID 02/10/18 [History] Doxycycline 100 mg PO QMWF 02/10/18 [History] Ergocalciferol (VITAMIN D2) [Vitamin D] 400 unit PO DAILY 02/10/18 [History] Fluticasone/Salmeterol [Advair 250-50 Diskus] 1 each IH BID 02/10/18 [History] Furosemide [Lasix] 40 mg PO DAILY 02/10/18 [History] Magnesium 250 mg PO DAILY 02/10/18 [History] Primidone [Mysoline] 50 mg PO BID 02/10/18 [History] Roflumilast [Daliresp] 500 mcg PO DAILY 02/10/18 [History] Spironolactone [Aldactone] 25 mg PO DAILY 02/10/18 [History] Tiotropium [Spiriva] 18 mcg IH 0700 02/10/18 [History] Warfarin [Coumadin] 4 mg PO 1800 02/10/18 [History] predniSONE [Prednisone] 2.5 mg PO QMWF 02/10/18 [History] Carvedilol [Coreg] 6.25 mg PO BIDWM 10/22/18 [History] Cyclosporine [Restasis] 1 each OP BID 10/22/18 [History] Ascorbic Acid [C-500] 500 mg PO DAILY #30 tablet 10/25/18 [Rx] Azithromycin [Zithromax] 250 mg PO DAILY #3 tablet 10/25/18 [Rx] Cefuroxime PO [Ceftin] 500 mg PO Q12HR #6 tablet 10/25/18 [Rx] Ferrous Sulfate 325 mg PO DAILY #30 tablet 10/25/18 [Rx] Isosorbide MONOnitrate (24 HR) [Imdur] 30 mg PO DAILY #30 tab.er.24h 10/25/18 [Rx] Lactobacillus [Culturelle] 1 each PO BID #6 cap.sprink 10/25/18 [Rx] Allergies/Adverse Reactions: Allergy/AdvReac Type Severity Reaction Status Date / Time phenytoin [From Dilantin] Allergy See Verified 02/10/18 10:41 Comments Date of admission: 10/22/18 12:09 Primary care physician: Vitaly Epstein - Constitutional Vitals: Temp Pulse Resp BP Pulse Ox 97.7 F 72 16 120/72 91 10/25/18 10:00 10/25/18 10:00 10/25/18 10:00 10/25/18 10:00 10/25/18 10:00 - Patient Status Disposition: Home, Self-Care Condition: Fair - Discharge Instructions Follow Up With: Vitaly Epstein [Primary Care Provider] - 1 week - Diet and Activity Activity: resume usual activities as tolerated Diet: advance to your usual diet
== END 2018-10-25 11:55 | disposition home or self-care (01) | DRG 190 ==
LOC: EMEROOPIK 10:37 → INPPIK 12:09
PROVIDERS: ADMIT Internal Medicine; ATTEND Internal Medicine